=== PATIENT | female | born 1940 | race Caucasian/White ===

== ENCOUNTER 2019-08-26 11:20 | Emergency (ER) | payer OTHER ==
[~2019-08-26] VITALS: Ht 152.4 cm; Wt 46.3 kg
[2019-08-26] MEDS ORDERED: REMINYL8 MG (12:53)
[2019-08-26] MEDS ORDERED: SYNTHROID112 MCG (12:53)
[2019-08-26] MEDS ORDERED: FOLIC ACID 1 MG (12:54)
[2019-08-26] MEDS ORDERED: ATORVASTATIN 20 MG (12:54)
== END 2019-08-26 16:18 | disposition home or self-care (01) ==
LOC: ER 11:20
DX: K58.8 Other irritable bowel syndrome (principal)